=== PATIENT | male | born 1990 | race African-American/Black ===

== ENCOUNTER 2023-10-15 17:24 | Observation (INO) | payer SELFPAY ==
[2023-10-15 17:47] VITALS: BMI 20.8
[2023-10-15 18:20] LABS: BASO % 0.4 % (0-2.0); EOS % 0.8 % (0-4.5); HEMATOCRIT 40.4 % (35.4-49); LYMPH % 35.2 % (8-40); MCH 28.1 pg (25.7-33.7); MCHC 32.3 g/dl (32.0-35.9); MEAN PLT VOLUME 7.8 fl (7.5-11.1); MONO % 12.6 % (3.8-10.2); PLATELET COUNT 198 10^3/uL (134-434); RBC 4.64 M/mm3 (4.00-5.60); RDW 14.6 % (11.9-15.9); WHITE BLOOD COUNT 6.1 K/mm3 (4.0-10.0)
[2023-10-15 18:41] LABS: EPI CELLS 23 /uL (0-25.1); HYALINE CASTS 0 /uL (0-3.1); URINE APPEARANCE TURBID; URINE BACTERIA 16 /uL (0-1359); URINE BILIRUBIN NEGATIVE (NEGATIVE); URINE COLOR RED; URINE GLUCOSE (UA) NEGATIVE (NEGATIVE); URINE KETONE NEGATIVE (NEGATIVE); URINE LEUK ESTERASE 2+ (NEGATIVE); URINE NITRITE NEGATIVE (NEGATIVE); URINE PROTEIN 3+ (NEGATIVE); URINE RBC 24710 /uL (0-23.9); URINE WBC 446 /uL (0-25.8)
[2023-10-15] MEDS: LACTATED RINGERS SOLUTION 1000 ML INFUS.BAG IV ONE (19:15)
[2023-10-15 19:20] LABS: POTASSIUM 3.7 mmol/L (3.5-5.1)
[2023-10-15] MEDS ORDERED: PIPERACILLIN/TAZOB 4.5 GM 4.5 GM/100 ML BAG IVPB ONE (19:20)
[2023-10-15 19:23] LABS: CALCIUM 9.1 mg/dL (8.5-10.1)
[2023-10-15] MEDS: PIPERACILLIN/TAZOB 4.5 GM 4.5 GM in DEXTROSE 5%-WATER 100 ML IVPB ONE (19:23)
[2023-10-15 19:24] LABS: ALBUMIN 4.3 g/dl (3.4-5.0); BLOOD UREA NITROGEN 14.4 mg/dL (7-18)
[2023-10-15 19:29] LABS: BILIRUBIN,TOTAL 0.6 mg/dL (0.2-1); TOT PROT 7.2 g/dl (6.4-8.2)
[2023-10-15] MEDS ORDERED: morphine SULFATE 4 MG/ML VIAL ONE (20:02)
[2023-10-15] MEDS: morphine CARPU-JECT 4 MG/1 ML DISP.SYRIN IVPUSH ONE (20:09)
[2023-10-15] MEDS ORDERED: morphine SULFATE 4 MG/ML VIAL IM PRN (21:57)
[2023-10-15] MEDS ORDERED: ACETAMINOPHEN INJECTION 100 ML IVPB ONE (23:05)
[2023-10-15] MEDS: ACETAMINOPHEN 1000 MG/100 ML BAG IVPB PRN (23:09)
[2023-10-16] MEDS ORDERED: SIMETHICONE 80 MG TAB.CHEW (FP) PO PRN
[2023-10-16] MEDS ORDERED: PIPERACILLIN/TAZOB 3.375 GM 3.375 GM/50 ML BAG IVPB ONE ×2 (02:09→09:13)
[2023-10-16] MEDS: SODIUM CHLORIDE 1,000 ML IV SCH (02:19)
[2023-10-16] MEDS: PIPERACILLIN/TAZOB 3.375 GM 3.375 GM in DEXTROSE 5%-WATER - 50 ML IVPB SCH (02:20)
[2023-10-16] MEDS ORDERED: morphine SULFATE 4 MG/ML VIAL ONE (02:22)
[2023-10-16] MEDS: morphine SULFATE 4 MG/ML VIAL IVPUSH PRN (02:35)
[2023-10-16 02:38] VITALS: TEMP 97.6
[2023-10-16 06:18] LABS: HEMOGLOBIN 12.9 GM/dL (11.7-16.9); MCH 28.4 pg (25.7-33.7); MCHC 32.3 g/dl (32.0-35.9); MEAN PLT VOLUME 8.1 fl (7.5-11.1); PLATELET COUNT 185 10^3/uL (134-434); RBC 4.54 M/mm3 (4.00-5.60); RDW 13.8 % (11.9-15.9); WHITE BLOOD COUNT 5.7 K/mm3 (4.0-10.0)
[2023-10-16 06:37] LABS: POTASSIUM 3.9 mmol/L (3.5-5.1)
[2023-10-16 06:39] LABS: CALCIUM 8.6 mg/dL (8.5-10.1)
[2023-10-16 06:40] LABS: ALBUMIN 3.8 g/dl (3.4-5.0); BLOOD UREA NITROGEN 9.9 mg/dL (7-18)
[2023-10-16 06:43] LABS: CREATININE 0.8 mg/dL (0.55-1.3); PHOSPHOROUS 3.8 mg/dL (2.5-4.9)
[2023-10-16 06:44] LABS: BILIRUBIN,TOTAL 0.4 mg/dL (0.2-1)
[2023-10-16 06:57] VITALS: RESP 13
[2023-10-16] MEDS ORDERED: TAMSULOSIN HCL 0.4 MG CAP ONE (09:13)
[2023-10-16] MEDS: TAMSULOSIN HCL 0.4 MG CAP PO SCH (09:25)
[2023-10-16 12:14] VITALS: BP 131/83; PULSE 66
[2023-10-17] MEDS ORDERED: PIPERACILLIN/TAZOB 3.375 GM 3.375 GM in DEXTROSE 5%-WATER - 50 ML IVPB SCH (02:00)
== END 2023-10-16 15:01 | disposition home or self-care (01) ==
LOC: JER 17:24 → JERBED 19:24
PROVIDERS: ADMIT Internal Medicine; ATTEND Internal Medicine
PROC: 3E033NZ Introduction of Analgesics, Hypnotics, Sedatives into Peripheral Vein, Percutaneous Approach (ICD-10-PCS; principal; 2023-10-15)
PROC: 3E03329 Introduction of Other Anti-infective into Peripheral Vein, Percutaneous Approach (ICD-10-PCS; 2023-10-15)
PROC: 3E0337Z Introduction of Electrolytic and Water Balance Substance into Peripheral Vein, Percutaneous Approach (ICD-10-PCS; 2023-10-15)
DX: N39.0 Urinary tract infection, site not specified (principal); Z87.442 Personal history of urinary calculi; Z96.0 Presence of urogenital implants; N20.1 Calculus of ureter; R30.0 Dysuria; R31.9 Hematuria, unspecified; F12.929 Cannabis use, unspecified with intoxication, unspecified; N20.0 Calculus of kidney
CPT/HCPCS: 36415; 74176-TC; 80053; 81003; 83735; 84100; 85025; 85027; 87086; 93005; 93010; 99285-25; G0378; J0131

== ENCOUNTER 2023-10-19 13:25 | Emergency (ER) | payer SELFPAY ==
[2023-10-19 13:33] VITALS: BP 139/95; PULSE 77; RESP 18; TEMP 98.3; BMI 19.6
[2023-10-19] MEDS ORDERED: KETOROLAC TROMETHAMINE 30 MG/1 ML VIAL ONE (13:43)
[2023-10-19] MEDS: KETOROLAC TROMETHAMINE 30 MG/1 ML VIAL IVPUSH ONE (14:16)
[2023-10-19] MEDS: SODIUM CHLORIDE 0.9% 500 ML INFUS.BAG IV ONE (14:16)
[2023-10-19 14:46] LABS: BASO % 0.9 % (0-2.0); EOS % 0.7 % (0-4.5); HEMATOCRIT 42.2 % (35.4-49); HEMOGLOBIN 13.7 GM/dL (11.7-16.9); LYMPH % 39.4 % (8-40); MCH 28.3 pg (25.7-33.7); MCHC 32.5 g/dl (32.0-35.9); MEAN CELL VOLUME 87.2 fl (80-96); MEAN PLT VOLUME 8.1 fl (7.5-11.1); MONO % 11.4 % (3.8-10.2); NEUT % 47.6 % (42.8-82.8); PLATELET COUNT 201 10^3/uL (134-434); RBC 4.84 M/mm3 (4.00-5.60)
[2023-10-19 14:49] LABS: EPI CELLS 30 /uL (0-25.1); HYALINE CASTS 1 /uL (0-3.1); PH,URINE 6.5 (5.0-8.0); URINE APPEARANCE Error; URINE BACTERIA 40 /uL (0-1359); URINE BILIRUBIN NEGATIVE (NEGATIVE); URINE COLOR RED; URINE GLUCOSE (UA) NEGATIVE (NEGATIVE); URINE KETONE NEGATIVE (NEGATIVE); URINE LEUK ESTERASE 3+ (NEGATIVE); URINE NITRITE NEGATIVE (NEGATIVE); URINE PROTEIN 2+ (NEGATIVE); URINE RBC 7693 /uL (0-23.9); URINE UROBILINOGEN 0.2 mg/dL (0.2-1.0); URINE WBC 355 /uL (0-25.8)
[2023-10-19 15:10] LABS: ALBUMIN 4.4 g/dl (3.4-5.0); BLOOD UREA NITROGEN 12.4 mg/dL (7-18)
[2023-10-19 15:14] LABS: TOT PROT 7.5 g/dl (6.4-8.2)
[2023-10-19 15:15] LABS: BILIRUBIN,TOTAL 0.5 mg/dL (0.2-1)
[2023-10-19 15:16] LABS: CALCIUM 10.1 mg/dL (8.5-10.1)
== END 2023-10-19 17:26 | disposition home or self-care (01) ==
LOC: JER 13:25
PROC: 3E0333Z Introduction of Anti-inflammatory into Peripheral Vein, Percutaneous Approach (ICD-10-PCS; principal; 2023-10-19)
DX: R10.9 Unspecified abdominal pain (principal)
CPT/HCPCS: 36415; 74176-TC; 80053; 81003; 83690; 85025; 87086; 99284-25

== ENCOUNTER 2023-10-21 14:18 | Emergency (ER) | payer SELFPAY ==
[2023-10-21 14:26] VITALS: BP 147/86; PULSE 68; RESP 18; TEMP 98.3; BMI 19.6
[2023-10-21] MEDS ORDERED: morphine SULFATE 4 MG/ML VIAL ONE (15:16)
[2023-10-21] MEDS: morphine CARPU-JECT 4 MG/1 ML DISP.SYRIN IVPUSH ONE (15:38)
[2023-10-21 15:48] LABS: BASO % 0.5 % (0-2.0); EOS % 0.1 % (0-4.5); HEMOGLOBIN 14.3 GM/dL (11.7-16.9); MCH 28.3 pg (25.7-33.7); MCHC 32.5 g/dl (32.0-35.9); MEAN CELL VOLUME 87.2 fl (80-96); MEAN PLT VOLUME 7.8 fl (7.5-11.1); MONO % 7.1 % (3.8-10.2); NEUT % 72.3 % (42.8-82.8); PLATELET COUNT 222 10^3/uL (134-434); RBC 5.05 M/mm3 (4.00-5.60); RDW 14.6 % (11.9-15.9); WHITE BLOOD COUNT 6.1 K/mm3 (4.0-10.0)
[2023-10-21 15:54] LABS: INR 1.02 (0.83-1.09); PROTHROMBIN TIME (PATIENT) 11.7 SEC (9.7-13.0)
[2023-10-21 15:57] LABS: ACTIVATED PTT 30.7 SECONDS (25.2-36.5)
[2023-10-21 16:11] LABS: POTASSIUM 4.3 mmol/L (3.5-5.1)
[2023-10-21 16:12] LABS: CALCIUM 9.9 mg/dL (8.5-10.1)
[2023-10-21 16:13] LABS: ALBUMIN 4.8 g/dl (3.4-5.0); BLOOD UREA NITROGEN 14.7 mg/dL (7-18)
[2023-10-21 16:18] LABS: BILIRUBIN,TOTAL 0.5 mg/dL (0.2-1); TOT PROT 8.2 g/dl (6.4-8.2)
[2023-10-21] MEDS ORDERED: oxyCODONE HCL 5 MG TABLET ONE (17:45)
[2023-10-21] MEDS: oxyCODONE HCL 5 MG TABLET PO ONE (17:55)
== END 2023-10-21 18:16 | disposition home or self-care (01) ==
LOC: JER 14:18
PROC: 3E033NZ Introduction of Analgesics, Hypnotics, Sedatives into Peripheral Vein, Percutaneous Approach (ICD-10-PCS; principal; 2023-10-21)
DX: R10.30 Lower abdominal pain, unspecified (principal)
CPT/HCPCS: 36415; 71046-TC-FY; 80053; 85025; 85610; 85730; 86850; 86900; 86901; 93005; 93010; 99285-25